=== PATIENT | female | born 1990 | race Caucasian/White ===

== ENCOUNTER 2021-01-03 01:18 | Emergency (ER) | payer MEDICAID ==
[~2021-01-03 01:18] MED LIST: NICO-486 TD; OMEP20CA9
== END 2021-01-04 02:30 ==
LOC: ED 01-04 02:00
DX: O26.891 Other specified pregnancy related conditions, first trimester (principal); Z3A.01 Less than 8 weeks gestation of pregnancy; Z53.21 Procedure and treatment not carried out due to patient leaving prior to being seen by health care provider

== ENCOUNTER 2021-01-03 01:34 | Observation (INO) | payer MEDICAID ==
[~2021-01-03] VITALS: Ht 160 cm; Wt 76.4 kg
[2021-01-03 03:20] LABS: MICROSCOPIC INDICATED
[2021-01-03 03:48] LABS: AMPHETAMINE SCREEN, URINE Negative (Negative); BARBITURATE SCREEN, URINE Negative (Negative); BENZODIAZEPINE SCREEN, URINE Negative (Negative); CANNABINOID SCREEN, URINE Negative (Negative); COCAINE SCREEN, URINE Negative (Negative); METHADONE SCREEN, URINE Negative (Negative); OPIATE SCREEN, URINE Positive (Negative)
[2021-01-03] MEDS ORDERED: RHOGAM FROM BLOOD BANK 1 NOTE EA IM/IV ONE (07:00)
[2021-01-03 07:18] LABS: BASOPHILS % (AUTO) 1 % (0-1); EOSINOPHILS % (AUTO) 1 % (1-7); LYMPHOCYTES % (AUTO) 18 % (22-44); MEAN CORPUSCULAR HEMOGLOBIN 32.3 pg (27.0-34.8); MEAN PLATELET VOLUME 8.8 fL (7.4-10.4); MONOCYTES % (AUTO) 4 % (2-9); NEUTROPHILS % (AUTO) 77 % (42-75); PLATELET COUNT 378 x10^3/uL (130-400); RED BLOOD COUNT 3.32 x10^6/uL (3.82-5.3); RED CELL DISTRIBUTION WIDTH 14.6 % (9.6-15.2)
[2021-01-03] MEDS ORDERED: BETAMETHASONE 6 MG/ML, 5ML IM ONE (08:57)
[2021-01-03] MEDS: BETAMETHASONE 6 MG/ML, 5ML IM SCH (09:00)
[2021-01-03] MEDS ORDERED: PRENATAL VIT/IRON/FA 1 EACH TABLET PO SCH (09:00)
[2021-01-03] MEDS ORDERED: LACTATED RINGERS 1,000 ML IV SCH ×2 (16:00)
[2021-01-03] MEDS ORDERED: NICOTINE 21 MG/24 HR PATCH.TD24 TD ONE (18:00)
[2021-01-04] MEDS: BETAMETHASONE 6 MG/ML, 5ML IM SCH (09:00)
== END 2021-01-04 09:20 | disposition home or self-care (01) ==
LOC: LDOP 01:34 → LDIP 03:30 → INTOOBSV 03:30 → 2NE 14:58
PROVIDERS: ADMIT Obstetrics & Gynecology; ATTEND Obstetrics & Gynecology
DX: O46.93 Antepartum hemorrhage, unspecified, third trimester (principal); Z20.822 Contact with and (suspected) exposure to COVID-19; O09.33 Supervision of pregnancy with insufficient antenatal care, third trimester; O99.333 Smoking (tobacco) complicating pregnancy, third trimester; F17.210 Nicotine dependence, cigarettes, uncomplicated; Z3A.28 28 weeks gestation of pregnancy; Z79.899 Other long term (current) drug therapy
CPT/HCPCS: 36415; 59025; 76805; 80307; 81001; 85025; 85461; 86592; 86762; 86850; 86900; 87077; 87086; 87186; 87340; 87635; 87806; 89060; 96360; 96361; 96372; G0378; J0702; J2790; J7120; 96374; G0475; Q0114